=== PATIENT | female | born 1945 | race Hispanic/Latino ===

== ENCOUNTER 2017-10-23 14:16 | Emergency (ER) | payer MEDICARE ==
[2017-10-23] MEDS ORDERED: NACL 0.9% 1000 ML 1,000 ML IV ONE (16:54)
[2017-10-23 17:01] LABS: Bacteria,Urine 2+ /HPF (Negative); Mucus,Urine FEW /HPF
[2017-10-23 17:02] LABS: Bilirubin,Urine NEG (Negative); Blood,Urine NEG (Negative); Color,Urine Yellow (Yellow); Urobilinogen,Urine < 2.0 mg/dL (<2.0)
[2017-10-23 17:10] LABS: Basophils % (Auto) 0.7 % (0.0-1.8); Eosinophils # (Auto) 0.2 K/mm3 (0.0-0.4); Eosinophils % (Auto) 3.8 % (0.0-4.3); Hemoglobin 13.3 gm/dl (10.1-14.3); Lymphocytes # (Auto) 1.2 K/mm3 (1.2-5.4); Lymphocytes % (Auto) 18.5 % (13.4-35.0); Mean Corpuscular HGB Conc 34 % (30-34); Mean Corpuscular Hemoglobin 32 pg (28-32); Mean Corpuscular Volume 92 fl (79-97); Monocytes # (Auto) 0.6 K/mm3 (0.0-0.8); Monocytes % (Auto) 10.2 % (0.0-7.3); Platelet Count 143 K/mm3 (140-440); Red Blood Count 4.22 M/mm3 (3.65-5.03); Red Cell Distribution Width 12.4 % (13.2-15.2)
[2017-10-23 17:32] LABS: Albumin 3.7 g/dL (3.9-5); Calcium 9.9 mg/dL (8.4-10.2)
[2017-10-23] MEDS ORDERED: ROCEPHIN/NS 1 GM/50 ML 1 GM/50 ML BAG IV ONE (19:02)
[2017-10-23] MEDS ORDERED: cefTRIAXone 1 GM in NACL 0.9% 20 ML IV ONE (19:30)
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
[2017-10-23 20:20] LABS: Bacteria,Urine 1+ /HPF (Negative); Bilirubin,Urine NEG (Negative); Blood,Urine MOD (Negative); Color,Urine Yellow (Yellow); Mucus,Urine FEW /HPF; Urobilinogen,Urine < 2.0 mg/dL (<2.0)
[2017-10-24] MEDS ORDERED: WATER FOR INJ (PF) 10 ML ONE (09:32)
[2017-10-24] MEDS: GEODON IM PRN ×2 (09:53→23:31)
--- NOTE | 2017-10-25 14:54 | Consultation ---
History of Present Illness - Reason for Consult Consult date: 10/25/17 Reason for consult: Initial Psychiatric Evaluation - Chief Complaint Chief complaint: " My is an senior application software engineer." - History of Present Psychiatric Illness Patient is a 72-year-old female with a past medical history of bipolar disorder as well as Parkinson's disorder who is a resident at a half-way who is coming with increased aggressive behavior. She states " my and I were for 2 days. My fingers were hurting so I came to the hospital. I had a yeast infection. He wanted me to come to bed. " Today patient presents disorganized. Speech is nonsensical. Patient answer questions inappropriately. Medications and Allergies Allergies Allergy/AdvReac Type Severity Reaction Status Date / Time oxycodone [From Percocet] Allergy Unknown Verified 10/23/17 16:35 Active Meds: Active Medications Ziprasidone (Geodon) 10 mg IM Q2H PRN PRN Reason: Agitation Last Admin: 10/24/17 23:31 Dose: 10 mg Mental Status Exam - Vital signs Last Vital Signs Temp 97.7 F 10/25/17 12:09 Pulse 98 H 10/25/17 12:09 Resp 18 10/25/17 12:09 BP 126/64 10/25/17 12:09 Pulse Ox 98 10/25/17 12:09 - Exam Narrative exam: Mental Status Exam: Gen. appearance: Hospital gown Behavior: Cooperative Sensorium: Distracted Orientation: Alert and oriented x 1 Psychomotor and Musculoskeletal activity: Sitting up in bed Mood: Unable to Assess Affect: Constricted Speech/language: Normal rate and tone Thought processes: Disorganized. Nonsensical Thought content: Unable to Assess Perception: Unable to Assess Suicidal ideation/plan: Unable to Assess Homicidal ideation/plan: Unable to Assess Judgment: Poor Insight: Poor Results Result Diagrams: 10/23/17 16:52 10/23/17 16:52 All other labs normal. Assessment and Plan Assessment and plan: Impression: Patient is a 72-year-old female with a past medical history of bipolar disorder as well as Parkinson's disorder who is a resident at a half-way who is coming with increased aggressive behavior. Provider unable to fully assess patient. Patient presents disorganized. DDx: PPHx of Bipolar r/o Psychosis Unspecified Recommendations/Plan: 1. Will reassess in 24 hours. 2. Will collect collateral to determine treatment plan.
[2017-10-25] MEDS: GEODON IM PRN (16:45)
[2017-10-26] MEDS: GEODON IM PRN (03:09)
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
[2017-10-27 02:34] VITALS: BP 148/78
== END 2017-10-27 02:35 ==
LOC: ED 14:16
DX: F31.9 Bipolar disorder, unspecified (principal); G20 Parkinson's disease; F02.80 Dementia in other diseases classified elsewhere, unspecified severity, without behavioral disturbance, psychotic disturbance, mood disturbance, and anxiety; E83.42 Hypomagnesemia; M19.90 Unspecified osteoarthritis, unspecified site
CPT/HCPCS: 36415; 80053; 81001; 84443; 85025; 96361; 96365; 96366; 96372; 99285; G0480; J0696; J3486; J7030; 80320